=== PATIENT | female | born 1995 | race Caucasian/White ===

== ENCOUNTER → 2017-08-12 | Outpatient (REF) | payer BC, OTHER ==
[~2017-08-12] MED LIST: IBUP-1022 PO
== END ==
LOC: M LAB REF 13:15
PROVIDERS: ATTEND Nurse Practitioner Adult Health
DX: Z13.1 Encounter for screening for diabetes mellitus (principal)

== ENCOUNTER → 2018-08-15 | Outpatient (REF) | payer OTHER, BC | LOC: M LAB REF 17:08 | DX: J02.9 Acute pharyngitis, unspecified (principal) ==